=== PATIENT | male | born 1935 | race Two or more races ===

== ENCOUNTER 2016-12-19 10:29 | Day surgery (SDC) | payer OTHER ==
[~2016-12-19] VITALS: Ht 165.1 cm; Wt 87.0 kg
[2016-12-19] VITALS (20 sets, daily range): BP systolic 115–146; BP diastolic 66–96; PULSE 45–54; RESP 12–26; Ht 165.1 cm; Wt 87.0 kg
[2016-12-19] MEDS ORDERED: LOSA50TA6 PO (11:25)
[2016-12-19 12:03] LABS: ADD SCAN DIFF NO
[2016-12-19 12:08] LABS: BASOPHILS % 0.2 % (0.0-2.0); EOSINOPHILS # 0.1 10^3/ul (0.0-0.5); EOSINOPHILS % 1.7 % (0.0-7.0); HEMATOCRIT 38.7 % (42.0-52.0); HEMOGLOBIN 13.2 g/dl (14.0-18.0); LYMPHOCYTES # 1.9 10^3/ul (0.8-2.9); LYMPHOCYTES % 30.3 % (15.0-51.0); MEAN CORPUSCULAR HEMOGLOBIN 33.2 pg (29.0-33.0); MEAN CORPUSCULAR HGB CONC 34.1 g/dl (32.0-37.0); MEAN CORPUSCULAR VOLUME 97.2 fl (82.0-101.0); MEAN PLATELET VOLUME 12.6 fl (7.4-10.4); MONOCYTE # 0.6 10^3/ul (0.3-0.9); MONOCYTES % 8.8 % (0.0-11.0); NEUTROPHIL # 3.7 10^3/ul (1.6-7.5); NEUTROPHILS % 58.8 % (39.0-77.0); PLATELET COUNT 119 10^3/UL (140-415); RED BLOOD COUNT 3.98 10^6/ul (4.70-6.10); RED CELL DISTRIBUTION WIDTH 12.3 % (11.5-14.5); WHITE BLOOD COUNT 6.3 10^3/ul (4.8-10.8)
[2016-12-19] MEDS ORDERED: LOSA25TA5 PO (12:14)
[2016-12-19] MEDS ORDERED: AMIO200T2 PO (12:14)
[2016-12-19] MEDS ORDERED: FERR325T5 PO (12:14)
[2016-12-19] MEDS ORDERED: HYD25 PO (12:14)
[2016-12-19 12:23] LABS: INR 0.94; PROTIME 12.6 Sec (12.2-14.2)
[2016-12-19 12:24] LABS: PARTIAL THROMBOPLASTIN TIME 29.4 Sec (25.0-35.0)
[2016-12-19] MEDS ORDERED: SOD CHLORIDE 0.9% 1,000 ML IV SCH ×2 (12:30→14:31)
[2016-12-19 12:47] LABS: CALCIUM 8.9 mg/dl (8.4-10.2); CREATININE 1.35 mg/dl (0.61-1.24); POTASSIUM 4.3 mmol/L (3.5-5.1)
[2016-12-19] MEDS ORDERED: FENTAnyl 50 MCG/ML VIAL ONE (13:40)
[2016-12-19] MEDS ORDERED: IODIXANOL LOCM 100 ML BTL ONE (13:40)
[2016-12-19] MEDS ORDERED: LIDOCAINE 1% (MDV) 20 ML INJ ONE (13:40)
[2016-12-19] MEDS ORDERED: MIDAZOLAM 1 MG/ML 2 ML INJ ONE (13:40)
[2016-12-19] MEDS ORDERED: HEPARIN 1000 UNITS/NS (A-LINE) 1,000 ML ONE (13:40)
--- NOTE | 2016-12-19 14:35 | PDOCDIS ---
Discharge Instructions CONDITION Patient Condition: Good HOME CARE INSTRUCTIONS: Diet Instructions: Regular ACTIVITY: Activity Restrictions: Avoid heavy lifting (x 2 days) Do not Drive (x 2 days) Bathing Restrictions: PENNY Lr MD December 19, 2016 14:35
[2016-12-19] MEDS ORDERED: ONDANSETRON 4 MG INJ IV PRN (15:00)
[2016-12-19] MEDS ORDERED: AL HYDROX/MG HYDROX/SIMETH 30 ML CUP PO PRN (15:00)
[2016-12-19] MEDS ORDERED: ACETAMINOPHEN 325 MG TAB PO PRN (15:00)
--- NOTE | 2016-12-19 21:30 | RADRPT ---
Vent Rate: 45 bpm RR Interval: 0 msec RI Interval: 188 msec QRS Duration: 80 msec QT Interval: 510 msec QTC Interval: 441 msec P-R-T [place]: 62 - 33 - 0 degrees Marked sinus bradycardia T wave abnormality, consider inferolateral ischemia Abnormal ECG Electronically Signed By: Burke Avendano [id number]
--- NOTE | 2016-12-20 06:43 | CARRPT ---
DATE OF PROCEDURE: 12/19/2016 NAME OF PROCEDURES: 1. Left heart catheterization. 2. Selective left and right coronary angiography. 3. Supervision and interpretation of coronary angiography. 4. Right femoral angiography. 5. Perclose hemostasis device deployment. PATIENT IDENTIFICATION DATA: This is an 81-year-old male patient with exertional chest pain and jamaal dence of ischemia in a stress echocardiogram who was electively taken to the cardiac catheterization laboratory for evaluation of coronary anatomy and possible percutaneous intervention. Prior to the procedure, I explained to the patient the benefits and risks of this procedure which include but ar e not limited to , myocardial infarction, stroke, renal failure, ____, groin pain, groin infec tion, emergent bypass or vascular surgery, loss of limb, need for aspirin and Plavix for a prolonged amount of time. He fully understands and agrees to proceed. He also is aware that in the presence of chronic renal insufficiency, the exposure to contrast dye can result in contrast nephropathy and permanent renal insufficiency. MEDICATIONS USED: 1. subcutaneously, 8 mL. 2. Versed, a total of 1 mg IV. 3. Fentanyl, a total of 25 mcg intravenously. DESCRIPTION OF PROCEDURE: Following informed consent, the patient was brought to the cardiac cathet erization laboratory, and prepped and draped in the usual sterile fashion. 8 mL of was infilt rated in the right groin for local anesthesia. A 6-Palauan sheath was introduced in the right femora l artery upon first attempt, using the modified Seldinger technique. A 6-Palauan JL4 and a 6-Palauan JR4 catheter were used for selective left and right coronary angiography, respectively. A pigtail c atheter was advanced to the left ventricle. Pressure measurements were obtained and no ventri culography was performed in order to save contrast dye. All catheters were exchanged over a wire. Subsequently, all catheters were removed. Perclose hemostasis device was deployed without complicat ions. There were no complications removing the sheath. The total amount of contrast used was 10 mL . Total fluoro time was 1.7 minutes. HEMODYNAMICS: 1. Opening aortic pressure is 124/66/90. 2. Left ventricular pressure 129/10 with left ventricular end diastolic pressure 26 mmHg. 3. There was no gradient on pullback of the pigtail catheter from the left ventricle or ascending a keyla. 4. Final aortic pressure /72/96. DESCRIPTION OF CORONARY ANATOMY: 1. The left main artery reveals no evidence of significant obstructive disease. 2. The left anterior descending artery reveals mild atherosclerotic change without focal obstructiv e disease. 3. The circumflex artery reveals mild arteriosclerotic changes without focal obstructive disease. 4. The right coronary artery is an ectatic vessel with reduced flow velocity but no focal obstructi ve disease requiring interventional techniques. RIGHT FEMORAL ANGIOGRAM: The sheath entry point is visualized above the bifurcation. There is no s ignificant stenosis. CONCLUSION: This is an 81-year-old male patient with evidence of exertional chest pain and ischemia in a stress echocardiogram who was found to have mild arteriosclerotic changes in the left-sided ep icardial coronary arteries and ectatic arteriosclerotic changes in the right coronary artery with so me reduced flow but no focal obstructive disease requiring interventional techniques. All findings were conferred to the patient and the patient's family. Dictated By: PENNY LAWRENCE/DAVID Conf#: [id number] DID#: [id number]
== END 2016-12-19 19:25 | disposition home or self-care (01) ==
LOC: SDS 10:29
PROVIDERS: ATTEND Internal Medicine Cardiovascular Disease
DX: I25.10 Atherosclerotic heart disease of native coronary artery without angina pectoris (principal); R94.31 Abnormal electrocardiogram [ECG] [EKG]
CPT/HCPCS: 80048; 85025; 85610; 85730; 93005; 93458; C1760; C1769; C1887; C1894; J1644; J2250; J3010; Q9967; Z7610

== ENCOUNTER 2017-03-18 18:42 | Inpatient (IN) | payer OTHER ==
[~2017-03-18] VITALS: Ht 170.2 cm; Wt 88.5 kg
[~2017-03-18 18:42] MED LIST: AMIO200T2 PO; FERR325T5 PO; HYD25 PO; LOSA25TA5 PO; LOSA50TA6 PO
[2017-03-18] MEDS ORDERED: SOD CHLORIDE 0.9% 1,000 ML IV STA (19:33)
[2017-03-18 19:55] LABS: WHITE BLOOD COUNT 6.8 10^3/ul (4.8-10.8)
[2017-03-18 19:56] LABS: BASOPHILS % 0.1 % (0.0-2.0); EOSINOPHILS % 0.9 % (0.0-7.0); HEMATOCRIT 38.7 % (42.0-52.0); LYMPHOCYTES % 40.2 % (15.0-51.0); MEAN CORPUSCULAR HEMOGLOBIN 33.5 pg (29.0-33.0); MEAN CORPUSCULAR HGB CONC 33.6 g/dl (32.0-37.0); MEAN CORPUSCULAR VOLUME 99.7 fl (82.0-101.0); MEAN PLATELET VOLUME 11.6 fl (7.4-10.4); MONOCYTES % 11.4 % (0.0-11.0); NEUTROPHILS % 47.1 % (39.0-77.0); PLATELET COUNT 120 10^3/UL (140-415); POSITIVE DIFF @See below; RED BLOOD COUNT 3.88 10^6/ul (4.70-6.10); RED CELL DISTRIBUTION WIDTH 12.9 % (11.5-14.5)
[2017-03-18 20:09] LABS: INR 0.93; PROTIME 12.5 Sec (12.2-14.2)
[2017-03-18 20:10] LABS: PARTIAL THROMBOPLASTIN TIME 28.3 Sec (25.0-35.0)
[2017-03-18 20:12] LABS: ANION GAP 12 (8-16); BLOOD UREA NITROGEN 28 mg/dl (7-20); CALCIUM 9.6 mg/dl (8.4-10.2); CARBON DIOXIDE 30 mmol/L (21-31); CHLORIDE 100 mmol/L (97-110); CREATININE 1.47 mg/dl (0.61-1.24); GLUCOSE 98 mg/dl (70-220); POTASSIUM 4.1 mmol/L (3.5-5.1); SODIUM 138 mmol/L (135-144)
[2017-03-18 20:14] LABS: ADD UMIC YES; UR ASCORBIC ACID NEGATIVE (NEGATIVE); UR BILIRUBIN (Dip) NEGATIVE (NEGATIVE); UR BLOOD (Dip) 1+ mg/dL (NEGATIVE); UR CLARITY CLEAR (CLEAR); UR COLOR COLORLESS (YELLOW); UR GLUCOSE (Dip) NEGATIVE (NEGATIVE); UR KETONES (Dip) NEGATIVE (NEGATIVE); UR LEUKOCYTE ESTERASE (Dip) NEGATIVE Leu/ul (NEGATIVE); UR NITRITE (Dip) NEGATIVE (NEGATIVE); UR RBC 0 /HPF (0-5); UR SPECIFIC GRAVITY (Dip) 1.005 (1.003-1.030); UR TOTAL PROTEIN (Dip) NEGATIVE (NEGATIVE); UR UROBILINOGEN (Dip) NEGATIVE (NEGATIVE)
[2017-03-18 20:27] LABS: BENZODIAZEPINES Negative (NEGATIVE)
[2017-03-18 20:28] LABS: TROPONIN-I < 0.012 ng/ml (0.00-0.12)
[2017-03-18 20:28] LABS: BARBITURATES Negative (NEGATIVE); CANNABINOIDS Negative (NEGATIVE); COCAINE Negative (NEGATIVE); OPIATES Negative (NEGATIVE)
--- NOTE | 2017-03-18 20:33 | RADRPT ---
PROCEDURE: XR Chest. CLINICAL INDICATION: Altered mental status TECHNIQUE: Single frontal view of the chest was obtained COMPARISON: None FINDINGS: Atherosclerotic changes are seen in the aortic arch. There is mild tortuosity of the descending thoracic aorta. The cardiac silhouette is otherwise unre markable. The lungs are clear. There is no pleural effusion or pneumothorax. The bones and soft tissue show no acute change. IMPRESSION: Mild tortuosity of the descending thoracic aorta. Otherwise, no significant abnormalities are identi fied. RPTAT:AAJJ Physician Ashlee Date Time Electronically viewed and signed by Earl Thakur Physician on 03/18/2017 20:33 SNOW/
--- NOTE | 2017-03-18 20:36 | RADRPT ---
PROCEDURE: CT Brain without contrast. CLINICAL INDICATION: Altered mental status TECHNIQUE: A CT of the brain was performed on a multi-slice CT scanner utilizing axial imaging fro m the skull base through the vertex without IV contrast. Multiplanar reformatted images were made. Images were reviewed on a PACS workstation. The CTDIvol is 42.93 mGy and the DLP is 720.23 mGycm. One or more of the following post reduction techniques were used: Automated exposure control. Adjustment of the mA and/or kV according to patient's size. Use of iterative reconstruction technique. COMPARISON: None FINDINGS: There is age compatible cortical atrophy with proportional dilatation of the lateral ventricles. Mo derate deep white matter ischemic changes are present. The steen-white matter differentiation is oth erwise intact. No masses, edema or shift is identified. There are no intraparenchymal or extraaxial fluid collecti ons. There is near-complete opacification of the right maxillary sinus. The remaining visualized paranas al sinuses and mastoid air cells are well-aerated. The skull base and calvarium are intact. IMPRESSION: 1. Age compatible cortical atrophy with proportional dilatation of the lateral ventricles. 2. Moderate deep white matter ischemic changes are seen. 3. There is near-complete opacification of the right maxillary sinus. 4. Otherwise, no acute intracranial abnormalities are identified. RPTAT:AAJJ Physician Ashlee Date Time Electronically viewed and signed by Physician Ashlee on 03/18/2017 20:36 SNOW/
[2017-03-18 20:53] LABS: MONOCYTE # 0.4 10^3/ul (0.3-0.9); MONOCYTES % (M) 6 % (0-11); NEUTROPHIL # 3.4 10^3/ul (1.6-7.5)
[2017-03-18] MEDS ORDERED: MECL-77 PO (21:08)
[2017-03-18] MEDS ORDERED: CALC-277 PO (21:10)
[2017-03-18] MEDS ORDERED: POTA10TA97 PO (21:10)
[2017-03-18] MEDS ORDERED: CHLO5CAP2 PO (21:11)
[2017-03-18] MEDS ORDERED: DICL50TA11 PO (21:11)
[2017-03-18] MEDS ORDERED: FURO20TA3 PO (21:11)
[2017-03-18] MEDS ORDERED: FINA5TAB4 PO (21:12)
[2017-03-18 21:19] VITALS: TEMP 97.8
--- NOTE | 2017-03-18 22:24 | ERA ---
ER Documentation Chief Complaint Date/Time DATE: 03/18/17 TIME: 22:14 Chief Complaint weakness x 10 days, worse. ALOC and change in face and speech this am HPI 81-year-old male with generalized weakness for 10 days. He was brought to the ER because early this morning he had left facial droop and slurred speech. Is coming by the son and says that he was essentially unable to talk at all for about 4 hours. His speech has returned. He still has facial droop. Had no focal weakness in his arms or legs. He has no pain and otherwise feels well except for being hungry. ROS All systems reviewed and are negative except as per history of present illness. Medications Home Meds Reported Medications Finasteride* (Finasteride*) 5 Mg Tablet, 5 MG PO QHS, TAB 03/18/17 Furosemide* (Furosemide*) 20 Mg Tablet, 20 MG PO DAILY, #60 TAB 03/18/17 Chlordiazepoxide* (Chlordiazepoxide*) 5 Mg Capsule, 5 MG PO QHS, CAP 03/18/17 Diclofenac Sodium* (Diclofenac Sodium*) 50 Mg Tablet.dr, 50 MG PO BID, #60 TAB 03/18/17 Calcium Carbonate/Vitamin D3 (OYSTER SHELL 500 MG + VIT D TB) 1 Each Tablet, 1 EACH PO BID, TAB 03/18/17 Potassium Chloride (Klor-Con) 10 Meq Tablet.sa, 10 MEQ PO QAM, TAB.SA 03/18/17 Meclizine Hcl* (Meclizine Hcl*) 25 Mg Tablet, 25 MG PO BID Y for DIZZINESS, TAB 03/18/17 Discontinued Reported Medications Ferrous Sulfate (Ferrous Sulfate) 325 Mg Tablet.dr, 325 MG PO DAILY 12/19/16 Losartan Potassium* (Losartan Potassium*) 25 Mg Tablet, 25 MG PO DAILY, TAB 12/19/16 Hydrochlorothiazide* (Hydrochlorothiazide*) 25 Mg Tab, 25 MG PO DAILY, #30 TAB 12/19/16 Amiodarone Hcl* (Amiodarone Hcl*) 200 Mg Tablet, 200 MG PO DAILY, #30 TAB 12/19/16 Losartan Potassium* (Losartan Potassium*) 50 Mg Tablet, 50 MG PO BID, TAB 12/19/16 Allergies Allergies: Coded Allergies: No Known Allergy (Unverified , 03/18/17) PMhx/Soc History of Surgery: Yes (RIGHT KNEE 35 YEARS AGO-METAL THERE) Anesthesia Reaction: No Hx Respiratory Disorders: No Hx Cardiac Disorders: Yes (BRADYCARDIA, HTN, ARRTHYMIAS, high cholesterol) Hx Psychiatric Problems: No Hx Miscellaneous Medical Probl: No Hx Alcohol Use: Yes (RARE SCOIAL) Hx Substance Use: No Hx Tobacco Use: No Smoking Status: Never smoker Physical Exam Vitals Vital Signs Date Time Temp Pulse Resp B/P Pulse Ox O2 Delivery O2 Flow Rate FiO2 03/18/17 21:19 97.8 54 18 155/91 97 Room Air 03/18/17 18:56 97.9 61 18 162/79 96 Physical Exam Const: [] No distress Head: Atraumatic Eyes: Normal Conjunctiva, EOMI, PERRLA ENT: Normal External Ears, Nose and Mouth. Neck: Full range of motion..~ No meningismus. Resp: Clear to auscultation bilaterally Cardio: Regular rate and rhythm, no murmurs Abd: Soft, non tender, non distended. Normal bowel sounds Skin: No petechiae or rashes Back: No midline or flank tenderness Ext: No cyanosis, or edema, distal pulses intact bilateral upper and lower extremities Neur: Awake and alert and oriented 3, complete left facial droop, strength 5 out of 5 all extremities dorsally and proximally. Subjective numbness of his bilateral legs with intact touch sensation. NIH equals 2 Psych: Normal Mood and Affect Result Diagram: 03/18/17194403/18/171944 Results 24 hrs Laboratory Tests Test 03/18/17 19:45 03/18/17 19:46 03/18/17 19:59 White Blood Count 6.810^3/ul Red Blood Count 3.8810^6/ul Hemoglobin 13.0g/dl Hematocrit 38.7% Mean Corpuscular Volume 99.7fl Mean Corpuscular Hemoglobin 33.5pg Mean Corpuscular Hemoglobin Concent 33.6g/dl Red Cell Distribution Width 12.9% Platelet Count 45189^3/UL Mean Platelet Volume 11.6fl Neutrophils % 47.1% Segmented Neutrophils % (Manual) 50.0% Lymphocytes % 40.2% Lymphocytes % (Manual) 44% Monocytes % 11.4% Monocytes % (Manual) 6% Eosinophils % 0.9% Basophils % 0.1% Nucleated Red Blood Cells % 0.0/100WBC Neutrophils # 3.410^3/ul Neutrophils # (Manual) 10^3/ul Absolute Lymphocytes (Manual) 2.910^3/ul Lymphocytes # 3.010^3/ul Monocytes # 0.410^3/ul Absolute Monocytes (Manual) 0.410^3/ul Eosinophils # 10^3/ul Basophils # 10^3/ul Nucleated Red Blood Cells # 0.010^3/ul Prothrombin Time 12.5Sec Prothrombin Time Ratio 1.0 INR International Normalized Ratio 0.93 Activated Partial Thromboplast Time 28.3Sec Sodium Level 138mmol/L Potassium Level 4.1mmol/L Chloride Level 100mmol/L Carbon Dioxide Level 30mmol/L Anion Gap 12 Blood Urea Nitrogen 28mg/dl Creatinine 1.47mg/dl Glucose Level 98mg/dl Hemoglobin A1c 5.8% Calcium Level 9.6mg/dl Troponin I < 0.012ng/ml Bedside Glucose 102mg/dL Urine Color COLORLESS Urine Clarity CLEAR Urine pH 5.0 Urine Specific Hathaway 1.005 Urine Ketones NEGATIVEmg/dL Urine Nitrite NEGATIVEmg/dL Urine Bilirubin NEGATIVEmg/dL Urine Urobilinogen NEGATIVEmg/dL Urine Leukocyte Esterase NEGATIVELeu/ul Urine Microscopic RBC 0/HPF Urine Microscopic WBC 0/HPF Urine Hemoglobin 1+mg/dL Urine Glucose NEGATIVEmg/dL Urine Total Protein NEGATIVEmg/dl Urine Opiates Screen Negative Urine Barbiturates Negative Urine Amphetamines Screen Negative Urine Benzodiazepines Screen Negative Urine Cocaine Screen Negative Urine Cannabinoids Negative Current Medications Medications (Trade) Dose Ordered Sig/Jose Raul Route PRN Reason Start Time Stop Time Status Last Admin Dose Admin Sodium Chloride (NS) 1,000 ml @ 1,000 mls/hr Q1H STAT IV 03/18/17 19:33 03/18/17 20:32 DC 03/18/17 19:55 Aspirin (Aspirin) 324 mg ONCE ONCE PO 03/18/17 22:30 03/18/17 22:31 Ondansetron HCl (Zofran Inj) 4 mg ER BRIDGE PRN IV NAUSEA AND/OR VOMITING 03/18/17 22:30 03/19/17 22:29 Acetaminophen (Tylenol Tab) 650 mg ER BRIDGE PRN PO MILD PAIN/FEVER 03/18/17 22:30 03/19/17 22:29 Procedures/MDM Symptoms bases of stroke now resolved indicating likely TIA. Initial CT is negative. Patient was given 3 and 25 mg aspirin. No signs of acute infection. Patient does have renal insufficiency with unknown baseline creatinine. Symptoms described as very concerning. He is going to be admitted for MRI and further neurological workup. No signs of acute cardiac ischemia. Vital signs stable per spoke with , who will be admitting the patient to telemetry for further workup and management EKG interpretation: Sinus bradycardia rate of 51, borderline axis, no ST or T- wave changes concerning for acute ischemia. Normal intervals. gambling monitor interpretation: Mild sinus bradycardia without arrhythmia Head CT interpretation: I see no acute process. See no hemorrhage, mass-effect or midline shift, no skull fracture Departure Diagnosis: Primary Impression: TIA (transient ischemic attack) Additional Impressions: Renal insufficiency Thrombocytopenia ARIANA TOVAR DO Mar 18, 2017 22:24
[2017-03-18] MEDS ORDERED: ACETAMINOPHEN 325 MG TAB PO PRN (22:30)
[2017-03-18] MEDS ORDERED: ASPIRIN 81 MG TAB PO ONE (22:30)
[2017-03-18] MEDS ORDERED: SOD CHLORIDE 0.9% 500 ML IV ONE (22:30)
[2017-03-18] MEDS ORDERED: ONDANSETRON 4 MG INJ IV PRN (22:30)
[2017-03-18 23:35] VITALS: BP 168/76; PULSE 52
[2017-03-18 23:40] VITALS: Ht 170.2 cm; Wt 88.5 kg
[2017-03-19] VITALS (11 sets, daily range): BP systolic 134–185; BP diastolic 76–91; PULSE 47–62; RESP 16–19
[2017-03-19] MEDS ORDERED: morphine 2 MG INJ IV PRN (01:30)
[2017-03-19] MEDS ORDERED: ONDANSETRON 4 MG INJ IV PRN (01:30)
[2017-03-19] MEDS ORDERED: ACETAMINOPHEN 325 MG TAB PO PRN (01:30)
[2017-03-19 07:44] LABS: BASOPHILS % 0.3 % (0.0-2.0); EOSINOPHILS # 0.1 10^3/ul (0.0-0.5); EOSINOPHILS % 1.3 % (0.0-7.0); HEMATOCRIT 37.3 % (42.0-52.0); HEMOGLOBIN 12.4 g/dl (14.0-18.0); LYMPHOCYTES # 2.4 10^3/ul (0.8-2.9); LYMPHOCYTES % 38.3 % (15.0-51.0); MEAN CORPUSCULAR HEMOGLOBIN 33.1 pg (29.0-33.0); MEAN CORPUSCULAR HGB CONC 33.2 g/dl (32.0-37.0); MEAN CORPUSCULAR VOLUME 99.5 fl (82.0-101.0); MEAN PLATELET VOLUME 11.9 fl (7.4-10.4); MONOCYTE # 0.8 10^3/ul (0.3-0.9); MONOCYTES % 12.2 % (0.0-11.0); NEUTROPHILS % 47.6 % (39.0-77.0); PLATELET COUNT 117 10^3/UL (140-415); RED BLOOD COUNT 3.75 10^6/ul (4.70-6.10); RED CELL DISTRIBUTION WIDTH 12.4 % (11.5-14.5); WHITE BLOOD COUNT 6.4 10^3/ul (4.8-10.8)
[2017-03-19 08:03] LABS: CALCIUM 8.9 mg/dl (8.4-10.2); CHOL/HDL RATIO 4.9 RATIO; CREATININE 1.25 mg/dl (0.61-1.24); POTASSIUM 4.1 mmol/L (3.5-5.1)
[2017-03-19] MEDS ORDERED: FAMOTIDINE 20 MG INJ IV SCH (09:00)
[2017-03-19 09:18] LABS: ADD UMIC YES; UR ASCORBIC ACID NEGATIVE (NEGATIVE); UR BILIRUBIN (Dip) NEGATIVE (NEGATIVE); UR BLOOD (Dip) 1+ mg/dL (NEGATIVE); UR CLARITY CLEAR (CLEAR); UR COLOR STRAW (YELLOW); UR GLUCOSE (Dip) NEGATIVE (NEGATIVE); UR KETONES (Dip) NEGATIVE (NEGATIVE); UR LEUKOCYTE ESTERASE (Dip) NEGATIVE Leu/ul (NEGATIVE); UR NITRITE (Dip) NEGATIVE (NEGATIVE); UR RBC 0 /HPF (0-5); UR TOTAL PROTEIN (Dip) NEGATIVE (NEGATIVE); UR UROBILINOGEN (Dip) NEGATIVE (NEGATIVE)
--- NOTE | 2017-03-19 09:19 | RADRPT ---
PROCEDURE: US Carotids. CLINICAL INDICATION: bruit , CVA TECHNIQUE: Multiple sonographic of the carotid bifurcation region and vertebral arteries were obta ined utilizing steen scale, duplex and color-flow imaging. The images were reviewed on a PACS worksta tion. COMPARISON: No prior studies are available for comparison. FINDINGS: Evaluation of the right carotid bifurcation region reveals no significant calcific atherosclerotic d isease. Evaluation of the left carotid bifurcation region reveals no significant calcific atherosclerotic di sease. There is antegrade flow within the vertebral arteries bilaterally. RIGHT CAROTID MEASUREMENTS: Common Carotid Zhjdra91.6 (cm/sec) Internal Carotid Artery - eoxhuuby87.5 (cm/sec) Internal Carotid Artery - mid29.6 (cm/sec) Internal Carotid Artery - jfwaqt78.8 (cm/sec) Internal Carotid/Common Carotid1.22 LEFT CAROTID MEASUREMENTS: Common Carotid Iyggbj50.4 (cm/sec) Internal Carotid Artery - zpxybbur51.3 (cm/sec) Internal Carotid Artery - mid51 (cm/sec) Internal Carotid Artery - .6 (cm/sec) Internal Carotid/Common Carotid1.4 RPTAT: AA IMPRESSION: No evidence for hemodynamically significant stenosis in the bilateral internal carotid arteries - va lidated velocity measurements with angiographic measurements, velocity criteria are extrapolated fro m diameter data as defined by the Society of Radiologists in Ultrasound Consensus Conference Radiolo gy 2003; 229;340-346. This study does indirectly reference the measurement of the distal ICA diamet er as the denominator for stenosis measurement. Normal antegrade flow in the vertebral arteries bilaterally. .Calixto Tabares MD, Date Time Electronically viewed and signed by .Calixto Tabares MD, MD on 03/19/2017 09:19 .S/
[2017-03-19] MEDS: ASPIRIN 81 MG TAB PO SCH (09:30)
[2017-03-19] MEDS ORDERED: LORAZEPAM 1 MG TAB PO PRN (20:30)
--- NOTE | 2017-03-19 20:42 | QN ---
Documentation Comment [id number] POLI TEJEDA MD Mar 19, 2017 20:42
[2017-03-19] MEDS ORDERED: LOSARTAN 25 MG TAB PO SCH (21:00)
[2017-03-19] MEDS ORDERED: LORAZEPAM 2 MG INJ IV PRN (22:00)
[2017-03-19] MEDS ORDERED: HALOPERIDOL 5 MG INJ IM ONE (22:30)
[2017-03-20] VITALS (8 sets, daily range): BP systolic 126–151; BP diastolic 68–74; PULSE 47–54; RESP 18
[2017-03-20 07:42] LABS: BASOPHILS % 0.1 % (0.0-2.0); EOSINOPHILS # 0.1 10^3/ul (0.0-0.5); EOSINOPHILS % 1.1 % (0.0-7.0); HEMATOCRIT 36.9 % (42.0-52.0); HEMOGLOBIN 12.4 g/dl (14.0-18.0); LYMPHOCYTES # 2.6 10^3/ul (0.8-2.9); LYMPHOCYTES % 34.9 % (15.0-51.0); MEAN CORPUSCULAR HEMOGLOBIN 33.4 pg (29.0-33.0); MEAN CORPUSCULAR HGB CONC 33.6 g/dl (32.0-37.0); MEAN CORPUSCULAR VOLUME 99.5 fl (82.0-101.0); MEAN PLATELET VOLUME 11.6 fl (7.4-10.4); MONOCYTE # 0.8 10^3/ul (0.3-0.9); MONOCYTES % 10.5 % (0.0-11.0); NEUTROPHILS % 53.1 % (39.0-77.0); PLATELET COUNT 124 10^3/UL (140-415); POSITIVE DIFF @See below; RED BLOOD COUNT 3.71 10^6/ul (4.70-6.10); RED CELL DISTRIBUTION WIDTH 12.6 % (11.5-14.5); WHITE BLOOD COUNT 7.5 10^3/ul (4.8-10.8)
[2017-03-20 08:14] LABS: ALBUMIN 3.8 g/dl (3.3-4.9); ALBUMIN/GLOBULIN RATIO 1.22; BILIRUBIN,INDIRECT 0.5 mg/dl (0-1.1); BILIRUBIN,TOTAL 0.5 mg/dl (0.2-1.3); CALCIUM 8.9 mg/dl (8.4-10.2); CREATININE 1.26 mg/dl (0.61-1.24); POTASSIUM 3.7 mmol/L (3.5-5.1); TOTAL PROTEIN 6.9 g/dl (6.1-8.1)
[2017-03-20] MEDS ORDERED: FAMOTIDINE 20 MG TAB PO SCH (09:00)
[2017-03-20] MEDS: ASPIRIN 81 MG TAB PO SCH (09:17)
--- NOTE | 2017-03-20 10:02 | RADRPT ---
PROCEDURE: MR Brain without contrast. CLINICAL INDICATION: Stroke TECHNIQUE: An MRI of the brain was performed on a 1.5 mj scanner utilizing the following sequen piero: Sagittal T1 weighted, axial T2 weighted, axial FLAIR, coronal GRE, and axial diffusion weighted with ADC mapping. COMPARISON: CT brain 03/18/2017 FINDINGS: No evidence of restricted diffusion to suggest acute or early subacute ischemic infarction. There i s no evidence of intracranial hemorrhage, mass effect, or midline shift. No extra-axial fluid collec tions are seen. No hypointense signal abnormalities are seen on the GRE images to suggest the presence of blood degr adation products. Scattered nonspecific FLAIR/T2 signal hyperintensity foci in the subcortical and p eriventricular white matter compatible with sequelae of minimal chronic microvascular ischemic disea se. The brain parenchyma is normal in signal intensity and morphology with preservation of steen white di fferentiation . Moderate prominence of the ventricles and subarachnoid spaces compatible with age-r elated volume loss. Opacification of the right maxillary sinus compatible with chronic inflammatory change. Left sclera l buckle. The posterior fossa contents, brainstem, seventh - eighth cranial nerve complexes, pituitary axis, o rbits, paranasal sinuses, and mastoid air cells are unremarkable. Normal flow voids are visible in the proximal intracranial arteries and dural sinuses, indicating pa tency. IMPRESSION: 1. No acute or early subacute ischemic infarction or intracranial hemorrhage. 2. Mild chronic microvascular ischemic changes in the deep white matter. 3. Moderate central cerebral volume loss. RPTAT:AAJJ Physician Andressa Date Time Electronically viewed and signed by Physician Andressa on 03/20/2017 00:52 VIRGILIO/
[2017-03-20] MEDS ORDERED: MECLIZINE 25 MG TAB PO PRN (10:30)
--- NOTE | 2017-03-20 10:56 | HP ---
DATE OF ADMISSION: 03/18/2017 HISTORY OF PRESENT ILLNESS: The patient is an elderly male who has a history of hypertension, a history of left heart catheter 12/16/2016 shows left main reveals no evidence of significant obstructive disease. Left anterior descending reveals mild atherosclerotic change. The artery reveals mild atherosclerotic changes without focal obstructive disease. The right coronary artery is vessel with a reduced flow, no focal obstructive disease. The patient now presents with_ weakness and was told by his doctor to go to the hospital for possible stroke symptoms. The patient when he presented to the ER has generalized weakness, left facial droop, slurred speech and the patient has weakness of both upper going on for the last 10 days. The patient's blood pressure is 150/91. Hematocrit 38.7, sodium 135, potassium . EKG shows sinus bradycardia. The patient had a_ scan, shows no evidence for hemodynamic significant stenosis in the bilateral carotid artery. CT of the brain: Age compatible cortical atrophy. Marked tortuosity of the descending thoracic aorta. PAST MEDICAL HISTORY: Positive for hypertension, hx_ CVA, BPH. ALLERGIES: NEGATIVE. FAMILY HISTORY: Negative. SOCIAL HISTORY: Negative. MEDICATIONS: 1. Vitamin D3. 2. bph meds 3. Docusate sodium. 4. Proscar. 5. Lasix. 6. Meclizine. 7. Potassium. REVIEW OF SYSTEMS: HEENT: Unremarkable. CARDIOVASCULAR: Unremarkable. GASTROINTESTINAL: Abdomen: EXTREMITIES: Unremarkable. NEUROLOGIC: BANK OPERATIONS OFFICER as mentioned. PHYSICAL EXAMINATION: GENERAL: The patient is awake, alert. VITAL SIGNS: Pulse 49, blood pressure 160/78. HEENT: Head is atraumatic, normocephalic. Pupils equal and reactive to light. NECK: Supple. No JVD. LUNGS: Clear. CARDIAC: CVS: S1, S2 normal. ABDOMEN: Soft, nontender. Bowel sounds positive. No palpable masses. EXTREMITIES: No cyanosis, clubbing or edema. NEUROLOGIC: BANK OPERATIONS OFFICER: The patient is awake, alert, moving both upper and lower extremities. No deficits noted. DATA: Hemoglobin 7.3. BUN 25, creatinine 0.25. IMPRESSION: 1. The patient has weakness r/o_ cerebrovascular accident. 2. Hypertension. 3. Underlying chronic kidney disease. 4. Benign prostatic hypertrophy. 5. The patient has sinus bradycardia. PLAN: Continue the medication. Cardiology consultation will be considered. The patient will have Neurology consultation. 2D echo if not done. Home medications will be continued. Dictated By: Timur Clemente MD /mayte/jake /Document#: [id number] JUAN DAVID
--- NOTE | 2017-03-20 11:13 | RADRPT ---
Echocardiogram Report Patient Name: ARMIN ZENDEJAS Gender: Male Date: 1935 Study Date: 19-Mar-2017 Probate Judge: Rupesh Ambrocio [facility] Location: [id number] Ref. Physician: PATY ZARAGOZA Quality: Good Procedures: Transthoracic echocardiogram with complete 2D, M-Mode, and doppler examination. Indications: Weakness. 2D/M Mode Doppler Measurement Value Normal Ranges Measurement Value Normal Ranges LVIDd 2D 5.0 3.5 - 5.6 cm AV Peak Rachid 1.4 m/sec LVIDs 2D 2.9 2.1 - 4.1 cm AV Peak PG 7.5 mmHg LVPWd 2D 1.3 0.6 - 1.1 cm AI Peak PG 51.8 mmHg IVSd 2D 1.4 0.6 - 1.1 cm AI Peak Rachid 3.6 m/sec AoR Diam 2D 3.4 2.0 - 3.7 cm AI PHT 902.1 msec EDV 2D 119.2 cm3 LVOT Peak Rachid 1.1 m/sec ESV 2D 25.0 cm3 LVOT Peak PG 4.8 mmHg LA Dimen 2D 4.0 2.3 - 4.0 cm MV E Peak Rachid 0.3 m/sec MV A Peak Rachid 0.8 m/sec MV E/A 0.4 MV Decel Time 295 msec MV Decel Parmer 1 MV E/A 0.4 TR Peak Rachid 2.8 m/sec TR Peak PG 30.7 mmHg RVSP 34.0 mmHg Findings Left Ventricle: Normal left ventricular systolic function. Normal left ventricular cavity size. Mild concentric left ventricular hypertrophy. Ejection fraction is visually estimated at 65 %. Tissue Doppler/Mitral Doppler indices are consistent with impaired relaxation (Stage I diastolic dysfunction). Right Ventricle: Normal right ventricular size. Normal right ventricular systolic function. Left Atrium: Upper limit of normal left atrial size. Right Atrium: The right atrium is normal in size. Mitral Valve: Normal appearance and function of the mitral valve with trace physiologic regurgitation. Aortic Valve: No hemodynamically significant aortic stenosis by doppler. Aortic cusps appear mildly calcified. Mild aortic valve regurgitation. Tricuspid Valve: Normal appearance of the tricuspid valve. Estimated peak PA systolic pressure 34 mmHg. There is mild tricuspid regurgitation. Pulmonic Valve: Normal pulmonic valve appearance. There is trace pulmonic regurgitation. Pericardium: Normal pericardium with no significant pericardial effusion. Aorta: Normal aortic root. IVC: Normal size and normal respiratory collapse consistent with normal right atrial pressure. Conclusions 1.Normal left ventricular systolic function. Normal left ventricular cavity size. Mild concentric left ventricular hypertrophy. Ejection fraction is visually estimated at 65 %. Tissue Doppler/Mitral Doppler indices are consistent with impaired relaxation (Stage I diastolic dysfunction). 2.Normal appearance and function of the mitral valve with trace physiologic regurgitation. 3.No hemodynamically significant aortic stenosis by doppler. Aortic cusps appear mildly calcified. Mild aortic valve regurgitation. 4.Normal appearance of the tricuspid valve. Estimated peak PA systolic pressure 34 mmHg. There is mild tricuspid regurgitation. Electronically Signed By: Tommy Hall 20-Mar-2017 11:05:12 -0700 Patient Name: ARMIN ZENDEJAS Study Date: 19-Mar-2017 [id number]
--- NOTE | 2017-03-20 11:21 | CONS ---
Date/Time of Note Date/Time of Note DATE: 03/20/17 TIME: :17 Assessment/Plan Assessment/Plan Chief Complaint/Hosp Course 81 year old male with history of HTN, dementia, recent change in blood pressure medications admitted with concern for CVA. MRI Brain shows no acute changes, Duplex negative. HBA1C and LDL at goal recommend c/w aspirin 81 mg, BP <140/90 to optimize secondary stroke risk factors avoid overly sedating medications, avoid benzodiazepines and haldol if necessary low dose seroquel 25 mg prn for agitation may follow w neurology as outpatient for further dementia evaluation will sign off Problems: Consultation Date/Type/Reason Admit Date/Time Mar 18, 2017 at 22:11 Date of Consultation: Mar 20, 2016 Type of Consultation: Neurology Reason for Consultation encephalopathy Referring Provider: POLI TEJEDA Hx of Present Illness 81 year old male with history of HTN, CAD, cognitive decline and progressive dementia admitted with confusion encephalopathy concern for possible CVA. Per hx obtained from son at bedside, he had a left facial droop slurred speech and weakness of UE sent to evaluate for CVA. he had a recent change in blood pressure medications and since then has been altered. MRI Brain : 1. No acute or early subacute ischemic infarction or intracranial hemorrhage. 2. Mild chronic microvascular ischemic changes in the deep white matter. 3. Moderate central cerebral volume loss. Social History Smoking Status: Never smoker Exam/Review of Systems Vital Signs Vitals Vital Signs Date Time Temp Pulse Resp B/P Pulse Ox O2 Delivery O2 Flow Rate FiO2 03/20/17 11:09 97.9 52 18 126/72 92 03/18/17 23:35 Room Air Intake and Output 03/19/17 03/19/17 03/20/17 15:00 23:00 07:00 Intake Total 250 ml Output Total 550 ml Balance -300 ml Exam awake and alert arousable oriented to son and hospital CN: left eye enucleated, right pupil reactive, no facial asymmetry tongue midline Motor: 5/5 in all extremities no drift Sensory is intact Coordination is intact Results Result Diagram: 03/20/17 0712 03/20/17 0712 Results 24 hrs Laboratory Tests Test 03/20/17 07:12 White Blood Count 7.5 Red Blood Count 3.71 L Hemoglobin 12.4 L Hematocrit 36.9 L Mean Corpuscular Volume 99.5 Mean Corpuscular Hemoglobin 33.4 H Mean Corpuscular Hemoglobin Concent 33.6 Red Cell Distribution Width 12.6 Platelet Count 124 L Mean Platelet Volume 11.6 H Neutrophils % 53.1 Lymphocytes % 34.9 Monocytes % 10.5 Eosinophils % 1.1 Basophils % 0.1 Nucleated Red Blood Cells % 0.0 Neutrophils # (Manual) 4.0 Lymphocytes # 2.6 Monocytes # 0.8 Eosinophils # 0.1 Basophils # 0.0 Nucleated Red Blood Cells # 0.0 Sodium Level 141 Potassium Level 3.7 Chloride Level 106 Carbon Dioxide Level 27 Anion Gap 12 Blood Urea Nitrogen 24 H Creatinine 1.26 H Glucose Level 96 Calcium Level 8.9 Total Bilirubin 0.5 Direct Bilirubin 0.00 Indirect Bilirubin 0.5 Aspartate Amino Transf (AST/SGOT) 28 Alanine Aminotransferase (ALT/SGPT) 31 Alkaline Phosphatase 56 Total Protein 6.9 Albumin 3.8 Globulin 3.10 Albumin/Globulin Ratio 1.22 Medications Medications Current Medications Aspirin (Aspirin) 81 mg DAILY PO Last administered on 03/20/17 09:17; Admin Dose 81 MG; Start 03/19/17 at 09:00 Ondansetron HCl (Zofran Inj) 4 mg Q4H PRN IV NAUSEA AND/OR VOMITING; Start at 01:30 Acetaminophen (Tylenol Tab) 650 mg Q6H PRN PO PAIN AND OR ELEVATED TEMP; Start 03/19/17 at 01:30 Morphine Sulfate (morphine) 2 mg Q4H PRN IV PAIN LEVEL 6-10; Start 03/19/17 at 01:30 Famotidine (Pepcid) 20 mg DAILY PO Last administered on 03/20/17 09:17; Admin Dose 20 MG; Start 03/20/17 at 09:00 Losartan Potassium (Cozaar) 25 mg QPM PO Last administered on 03/19/17 22:45; Admin Dose 25 MG; Start 03/19/17 at 21:00 Lorazepam (Ativan) 1 mg Q8 PRN PO ANXIETY Last administered on 03/19/17 20:36 ; Admin Dose 1 MG; Start 03/19/17 at 20:30 Lorazepam (Ativan) 1 mg Q6H PRN IV AGITATION; Start 03/19/17 at 22:00 Calcium Carbonate (Oyster Shell Calcium) 1.25 gm BID PO ; Start 03/20/17 at 21: 00 Chlordiazepoxide (Librium) 5 mg HS ONCE PO ; Start 03/20/17 at 21:00; Stop at 21:01 Diclofenac Sodium (Voltaren) 50 mg BID PO ; Start 03/20/17 at 21:00 Furosemide (Lasix) 20 mg AM PO ; Start 03/21/17 at 09:00 Meclizine HCl (Antivert) 25 mg BID PRN PO DIZZINESS; Start 03/20/17 at 10:30 Potassium Chloride (Klor-Con 10) 10 meq DAILY PO ; Start 03/21/17 at 09:00 MICHAEL ANDREA MD Mar 20, 2017 11:21
--- NOTE | 2017-03-20 13:50 | PDOCDIS ---
Discharge Instructions CONDITION Patient Condition: Stable HOME CARE INSTRUCTIONS: Special Diet: CARDIAC DIET ACTIVITY: Activity Restrictions: Slowly Increase Activity FOLLOW UP/APPOINTMENTS Follow-up Plan f/u own pcp 1 wk f/u own manager wellness [address] sterling 1 wk POLI TEJEDA MD Mar 20, 2017 13:50
[2017-03-20] MEDS ORDERED: LOSA25TA2 PO (13:52)
[2017-03-20] MEDS ORDERED: ASPI81TA3 PO (13:52)
[2017-03-20] MEDS ORDERED: ATOR10TA65 PO (13:52)
[2017-03-20] MEDS ORDERED: DICLOFENAC (EC) 25 MG TAB PO SCH (21:00)
[2017-03-20] MEDS ORDERED: CHLORDIAZEPOXIDE 5 MG CAP PO ONE (21:00)
[2017-03-20] MEDS ORDERED: CALCIUM CARBONATE 1.25 GM TAB PO SCH (21:00)
[2017-03-21] MEDS ORDERED: FUROSEMIDE 20 MG TAB PO SCH (09:00)
[2017-03-21] MEDS ORDERED: POTASSIUM CHLORIDE (SR) 10 MEQ TAB PO SCH (09:00)
--- NOTE | 2017-04-02 22:06 | QN ---
Documentation Comment [id number] POLI TEJEDA MD Apr 02, 2017 22:06
--- NOTE | 2017-04-03 05:58 | DS ---
DATE OF ADMISSION: 03/18/2017 DATE OF DISCHARGE: 03/20/2017 HISTORY OF PRESENT ILLNESS: The patient was admitted with a diagnosis of weakness. Rule out CVA, hypertension, underlying chronic kidney disease, benign prostatic hypertrophy, the patient is status bradycardia. HOSPITAL COURSE: The patient was seen by Dr. Bethany Johnson in consultation. Dr. Sims's impression was no acute or ischemic infarction by MRI or intracranial hemorrhage, mild chronic microvascular changes, moderate central cerebral volume loss. The patient's symptoms are stable and resolving. The patient was cleared to be discharged home. Carotid duplex scan showed no evidence for hemodynamic stenosis. MRI of the brain as mentioned above. FINAL DIAGNOSES: 1. Transient ischemic attack symptoms. 2. Hypertension. 3. Chronic kidney disease. 4. Dyslipidemia. DISCHARGE MEDICATIONS: 1. To continue on: 2. Aspirin. 3. Lipitor. 4. Losartan. 5. Calcium carbonate. 6. Vitamin D3. 7. . 8. Proscar. 9. Lasix. 10. Meclizine. 11. Potassium. DISCHARGE INSTRUCTIONS: The patient is to follow up with primary care physician and neurology. DIET: Cardiac diet. DISCHARGE CONDITION: Stable. Dictated By: Timur Clemente MD /mayte/cecilia /Document#: [id number]
== END 2017-03-20 18:40 | disposition home or self-care (01) | DRG 69 ==
LOC: E/R 18:42 → TEL 22:11
PROVIDERS: ADMIT Internal Medicine Nephrology; ATTEND Internal Medicine Nephrology
DX: G45.9 Transient cerebral ischemic attack, unspecified (principal); G93.40 Encephalopathy, unspecified; D69.6 Thrombocytopenia, unspecified; F03.90 Unspecified dementia, unspecified severity, without behavioral disturbance, psychotic disturbance, mood disturbance, and anxiety; R41.81 Age-related cognitive decline; E78.5 Hyperlipidemia, unspecified; I25.10 Atherosclerotic heart disease of native coronary artery without angina pectoris; I12.9 Hypertensive chronic kidney disease with stage 1 through stage 4 chronic kidney disease, or unspecified chronic kidney disease; N18.9 Chronic kidney disease, unspecified; N40.0 Benign prostatic hyperplasia without lower urinary tract symptoms; R47.81 Slurred speech; R29.810 Facial weakness; R00.1 Bradycardia, unspecified; Z95.5 Presence of coronary angioplasty implant and graft
CPT/HCPCS: 36415; 70450; 70551; 71010; 80048; 80053; 80061; 80307; 81001; 82962; 83036; 84300; 84484; 85025; 85610; 85730; 92610; 93005; 93306; 93880; J1630; J7030; J7040